=== PATIENT | female | born 1995 | race Caucasian/White ===

== ENCOUNTER 2018-08-14 20:42 | Emergency (ER) | payer OTHER ==
--- NOTE | 2018-08-14 20:54 | ER Report ---
History and Physical Time Seen By MD: 20:44 HPI/ROS CHIEF COMPLAINT: Wound dehisce HISTORY OF PRESENT ILLNESS: 22-year-old female presents ambulatory to the ER concerns about her right thumb laceration. She was seen one week ago and had her laceration repaired. She had her sutures out urgent care yesterday. Her wounds is coming open. She is unable to move her thumb through full range of motion. Patient was advised to follow-up with hand surgery by urgent care. Remove her sutures yesterday. Patient notes no drainage. Allergies: Coded Allergies: No Known Drug Allergies (Unverified , 08/14/18) Reviewed Nurses Notes: Yes Old Medical Records Reviewed: Yes Constitutional Vital Sign - Last 24 Hours 08/14/18 08/14/18 20:46 21:00 Temp 98.4 Pulse 96 Resp 16 B/P (MAP) 146/100 148/98 (115) Pulse Ox 97 O2 Delivery Room Air Physical Exam General appearance: Alert no distress. Respiratory: Chest is non tender, lungs are clear to auscultation. Cardiac: Regular rate and rhythm Extremities: Examination of the right hand reveals a approximated laceration in the right thumb web space. The wound appears to line up. There is no motion of the thumb secondary to pain and stiffness. DIFFERENTIAL DIAGNOSIS: After history and physical exam differential diagnosis was considered for wound dehiscence, wound infection, Medical Decision Making ED Course/Re-evaluation ED Course Patient was admitted to an examination room. H&P was done. The differential diagnoses was considered. The wound appears to be having some partial d ehiscence. Did discuss the option of applying some Dermabond. The patient's can follow-up with hand surgery since she has no range of motion. I am unsure if there is any tendon lacerations inside. Patient has stiffness and pain from being immobilized for a week. The wound lays together well approximated. Reapplying suture seems inappropriate at this stage. Patient was dressed and advised to follow-up with hand surgery. She is advised to see hand surgery as soon as possible. Decision to Disposition Date: Aug 14, 2018 Decision to Disposition Time: 20:52 Depart Departure Latest Vital Signs Vital Signs Date Time Temp Pulse Resp B/P (MAP) Pulse Ox O2 Delivery O2 Flow Rate FiO2 08/14/18 21:00 148/98 (115) 08/14/18 20:46 98.4 96 16 97 Room Air Impression: Primary Impression: Laceration of right thumb Additional Impression: Wound dehiscence Condition: Improved Disposition: HOME OR SELF-CARE Patient Instructions: Wound Dehiscence (ED) Additional Instructions: Follow-up with hand surgeon as soon as possible Problem Qualifiers Primary Impression: Laceration of right thumb Encounter type: subsequent encounter Damage to nail status: without damage Foreign body presence: without foreign body Qualified Codes: S61.011D - Laceration without foreign body of right thumb without damage to nail, subsequent encounter HERBERTH WALLER DO Aug 14, 2018 20:54
[2018-08-14 21:00] VITALS: BP 148/98
== END 2018-08-14 21:05 | disposition home or self-care (01) ==
LOC: ER 20:49
DX: T81.30XA Disruption of wound, unspecified, initial encounter (principal); S61.011A Laceration without foreign body of right thumb without damage to nail, initial encounter
CPT/HCPCS: 99281